=== PATIENT | female | born 1995 ===

== ENCOUNTER 2021-04-19 14:46 | Emergency (ER) | payer SELFPAY ==
[2021-04-19 15:27] VITALS: BP 113/78
== END 2021-04-20 09:52 ==
LOC: ED 14:46
DX: Z53.21 Procedure and treatment not carried out due to patient leaving prior to being seen by health care provider (principal)

== ENCOUNTER 2021-05-05 15:56 | Emergency (ER) | payer SELFPAY ==
[2021-05-05 16:41] VITALS: BP 109/74
--- NOTE | 2021-05-05 19:28 | Emergency Department Report ---
ED General Adult HPI - General Chief complaint: Fever Stated complaint: CHILLS, FEVER, STOMACH ACHE Time Seen by Provider: 05/05/21 19:05 Source: patient Mode of arrival: Ambulatory Limitations: No Limitations - History of Present Illness Initial comments: 25-year-old -[place] female patient without past medical history presents with complaints of nasal congestion and sneezing x1 month now with body aches, chills, intermittent diarrhea, and mild cough x5 days. She denies being tested for COVID-19 or having the COVID-19 vaccination. Patient also denies any shortness of breath, hemoptysis, chest pain, loss of taste or smell, recent known sick contacts, abdominal pain, or urinary symptoms. Patient states her body aches are relieved with ibuprofen. She has not checked her temperature at home. She states she is feeling well currently - Related Data Previous Rx's Medication Instructions Recorded Last Taken Type Loratadine 10 mg PO QDAY #10 tablet 05/05/21 Unknown Rx Ondansetron [Zofran Odt] 4 mg PO Q8HR PRN #10 tab.rapdis 05/05/21 Unknown Rx predniSONE [Deltasone] 20 mg PO BID 3 Days #6 tab 05/05/21 Unknown Rx Allergies Allergy/AdvReac Type Severity Reaction Status Date / Time No Known Allergies Allergy Unverified 04/19/21 15:27 ED Review of Systems ROS: Stated complaint: CHILLS, FEVER, STOMACH ACHE Other details as noted in HPI Constitutional: chills, malaise. denies: diaphoresis, weakness ENT: denies: throat pain Respiratory: see HPI Cardiovascular: as per HPI Gastrointestinal: nausea, diarrhea. denies: abdominal pain, vomiting, constipation, hematemesis, melena, hematochezia Genitourinary: denies: dysuria, frequency, hematuria, discharge, abnormal menses, dyspareunia Skin: denies: rash Neurological: denies: headache Hematological/Lymphatic: denies: swollen glands ED Past Medical Hx - Medications Home Medications: Home Medications Medication Instructions Recorded Confirmed Last Taken Type Loratadine 10 mg PO QDAY #10 tablet 05/05/21 Unknown Rx Ondansetron [Zofran Odt] 4 mg PO Q8HR PRN #10 tab.rapdis 05/05/21 Unknown Rx predniSONE [Deltasone] 20 mg PO BID 3 Days #6 tab 05/05/21 Unknown Rx ED Physical Exam - General Limitations: No Limitations General appearance: alert, in no apparent distress - Head Head exam: Present: atraumatic, normocephalic - Eye Eye exam: Present: normal appearance - ENT ENT exam: Present: normal orophraynx, other (Bilateral nasal congestion noted; no sinus tenderness to palpation noted) - Neck Neck exam: Present: normal inspection - Respiratory Respiratory exam: Present: normal lung sounds bilaterally. Absent: respiratory distress - Cardiovascular Cardiovascular Exam: Present: regular rate, normal rhythm - Neurological Exam Neurological exam: Present: alert, oriented X3 - Psychiatric Psychiatric exam: Present: normal affect, normal mood - Skin Skin exam: Present: warm, dry, intact, normal color. Absent: rash ED Course Vital Signs 05/05/21 16:40 Temperature 97.5 F L Pulse Rate 88 Respiratory 16 Rate Blood Pressure 109/74 O2 Sat by Pulse 99 Oximetry ED Medical Decision Making - Medical Decision Making 25-year-old -[place] female patient without past medical history presents with complaints of nasal congestion and sneezing x1 month now with body aches, chills, intermittent diarrhea, and mild cough x5 days. She denies being tested for COVID-19 or having the COVID-19 vaccination. Patient also denies any shortness of breath, hemoptysis, chest pain, loss of taste or smell, recent known sick contacts, abdominal pain, or urinary symptoms. Patient states her body aches are relieved with ibuprofen. She has not checked her temperature at home. She states she is feeling well currently Physical exam is normal aside from nasal congestion noted. Will treat symptomatically for viral syndrome. Recommend patient receives COVID-19 testing within the next 24 to 48 hours and self quarantine until she is further instructed. Recommend follow-up with PCP and 1 week. She is otherwise well- appearing, her vitals are within normal limits, she is stable for discharge home. Discussed in detail signs and symptoms that should prompt immediate retu rn to the ED with patient who verbalizes understanding Critical care attestation.: If time is entered above; I have spent that time in minutes in the direct care of this critically ill patient, excluding procedure time. ED Disposition Clinical Impression: Viral syndrome Disposition: HOME / SELF CARE / HOMELESS Is pt being admited?: No Condition: Stable Instructions: Viral Illness, Adult Prescriptions: predniSONE [Deltasone] 20 mg PO BID 3 Days #6 tab Loratadine 10 mg PO QDAY #10 tablet Ondansetron [Zofran Odt] 4 mg PO Q8HR PRN #10 tab.rapdis PRN Reason: Nausea Referrals: [facility],MD [Primary Care Provider] - 3-5 Days [facility] [Provider Group] - 3-5 Days Forms: Work/School Release Form(ED)
== END 2021-05-05 20:10 | disposition home or self-care (01) ==
LOC: ED 15:56
DX: B34.9 Viral infection, unspecified (principal); M79.10 Myalgia, unspecified site; R68.83 Chills (without fever); R05.9 Cough, unspecified
CPT/HCPCS: 99281